=== PATIENT | female | born 1975 | race Caucasian/White ===

== ENCOUNTER → 2017-05-21 | Outpatient (CLI) | payer MEDICAID | LOC: FIMAGING 13:38 | PROVIDERS: ATTEND Obstetrics & Gynecology | DX: O09.522 Supervision of elderly multigravida, second trimester (principal); Z3A.20 20 weeks gestation of pregnancy ==

== ENCOUNTER → 2017-09-17 | Outpatient (CLI) | payer MEDICAID | LOC: FIMAGING 08:21 | PROVIDERS: ATTEND Obstetrics & Gynecology | DX: O09.523 Supervision of elderly multigravida, third trimester (principal); O99.413 Diseases of the circulatory system complicating pregnancy, third trimester; Z3A.37 37 weeks gestation of pregnancy ==

== ENCOUNTER → 2018-01-17 | Outpatient (CLI) | payer SELFPAY | LOC: FIMAGING 11:14 | PROVIDERS: ATTEND Physical Medicine & Rehabilitation | DX: M54.6 Pain in thoracic spine (principal) | CPT/HCPCS: A9503 ==